=== PATIENT | male | born 1980 | race Caucasian/White ===

== ENCOUNTER 2022-11-01 18:24 | Emergency (ER) | payer MEDICAID | END 2022-11-01 19:51 | disposition home or self-care (01) | LOC: EMS 18:31 | DX: S01.01XA Laceration without foreign body of scalp, initial encounter (principal); X58.XXXA Exposure to other specified factors, initial encounter; Y93.89 Activity, other specified; Y92.89 Other specified places as the place of occurrence of the external cause; Y99.8 Other external cause status | CPT/HCPCS: 12002; 99282; Z7502 ==

== ENCOUNTER 2023-01-10 17:48 | Emergency (ER) | payer MEDICAID ==
[~2023-01-10] VITALS: Ht 170.2 cm; Wt 118.2 kg
[2023-01-10 17:57] VITALS: BP 134/79
[2023-01-10 18:04] LABS: COVID AG,FIA SOURCE NASAL SWAB
[2023-01-10 18:20] LABS: RAPID GROUP A STREP NEGATIVE (NEGATIVE)
[2023-01-10 18:26] LABS: INFLUENZA TYPE A NEGATIVE FOR TYPE A (NEGATIVE); INFLUENZA TYPE B NEGATIVE FOR TYPE B (NEGATIVE)
[2023-01-10] MEDS ORDERED: OXYMETAZOLINE HCL 0.05% 15 ML NASAL SPRAY NASAL ONE (19:30)
[2023-01-10] MEDS ORDERED: AMOX1TAB16 PO (19:38)
[2023-01-10] MEDS ORDERED: PSEU-221 PO (19:39)
== END 2023-01-10 20:37 | disposition home or self-care (01) ==
LOC: EMS 17:58
DX: J32.9 Chronic sinusitis, unspecified (principal); Z20.822 Contact with and (suspected) exposure to COVID-19
CPT/HCPCS: 71045; 87430; 87804; 99284